=== PATIENT | female | born 1975 | race Caucasian/White ===

== ENCOUNTER 2017-12-11 21:18 | Emergency (ER) | payer OTHER ==
[~2017-12-11] VITALS: Ht 167.6 cm; Wt 90.7 kg
[~2017-12-11 21:18] MED LIST: ACETAMINOPHEN-1 EAC1 PO; ADDERALL 20 MG20 M1 PO; AMOXICILLIN 50500 M1 PO; AMOXICILLIN875 MG PO; GARLIC OIL1 EACH; HYDROCODONE-AP1 EAC6 PO; MEBENDAZOLE100 MG PO; MILK THISTLE200 M1; MULTIVITAMINS1 EAC7; NORCO 5-325 TA1 EAC1 PO; NORCO 5-325 TA1 EACH PO; PROAIR HFA8.5 GM IH; ROBAXIN 750 MG750 M1 PO; TRAMADOL 50 MG50 MG PO; ZOFRAN ODT4 MG PO; [UNRECOGNIZED DRUG - OTHER]; [UNRECOGNIZED DRUG - OTHER]; [UNRECOGNIZED DRUG - OTHER]
[2017-12-11 22:03] VITALS: BP 113/49
== END 2017-12-11 22:17 | disposition home or self-care (01) ==
LOC: M.ERS 21:18
DX: S61.215A Laceration without foreign body of left ring finger without damage to nail, initial encounter (principal); E11.9 Type 2 diabetes mellitus without complications; E06.3 Autoimmune thyroiditis; Z88.6 Allergy status to analgesic agent; Z88.8 Allergy status to other drugs, medicaments and biological substances; Z88.1 Allergy status to other antibiotic agents; Z87.442 Personal history of urinary calculi; W26.0XXA Contact with knife, initial encounter; Y93.G1 Activity, food preparation and clean up; Y92.89 Other specified places as the place of occurrence of the external cause; Y99.8 Other external cause status

== ENCOUNTER 2018-08-22 12:56 | Emergency (ER) | payer OTHER ==
[~2018-08-22] VITALS: Ht 167.6 cm; Wt 90.7 kg
[2018-08-22] MEDS ORDERED: TRAMADOL 50 MG50 MG PO (15:12)
[2018-08-22] MEDS ORDERED: PENICILLIN V P500 MG PO (15:12)
[2018-08-22 15:30] VITALS: BP 125/62
== END 2018-08-22 15:31 | disposition home or self-care (01) ==
LOC: M.ERS 12:56
DX: S02.5XXA Fracture of tooth (traumatic), initial encounter for closed fracture (principal); K04.7 Periapical abscess without sinus; E11.9 Type 2 diabetes mellitus without complications; Z88.6 Allergy status to analgesic agent; Z88.1 Allergy status to other antibiotic agents; Z87.442 Personal history of urinary calculi; X58.XXXA Exposure to other specified factors, initial encounter; Y93.89 Activity, other specified; Y92.89 Other specified places as the place of occurrence of the external cause; Y99.8 Other external cause status

== ENCOUNTER 2018-11-20 16:59 | Emergency (ER) | payer OTHER ==
[~2018-11-20] VITALS: Ht 167.6 cm; Wt 90.7 kg
[~2018-11-20 16:59] MED LIST changes: +PENICILLIN V P500 MG PO
[2018-11-20] MEDS ORDERED: CLEOCIN HCL150 M1 PO (17:22)
[2018-11-20] MEDS ORDERED: NORCO 5-325 TA1 EAC1 PO (17:22)
[2018-11-20 17:29] VITALS: BP 132/83
== END 2018-11-20 17:30 | disposition home or self-care (01) ==
LOC: M.ERS 16:59
DX: K04.7 Periapical abscess without sinus (principal); Z88.1 Allergy status to other antibiotic agents; Z88.6 Allergy status to analgesic agent; Z87.442 Personal history of urinary calculi